=== PATIENT | male | born 1975 | race Asian ===

== ENCOUNTER 2022-08-05 03:07 | Emergency (ER) | payer BC ==
[~2022-08-05] VITALS: Ht 177 cm; Wt 59.1 kg
[2022-08-05 03:14] VITALS: TEMP 97.2
[2022-08-05 03:43] VITALS: BP 132/90; PULSE 53
== END 2022-08-05 03:44 | disposition home or self-care (01) ==
LOC: COL.ER 03:07
DX: S03.03XA Dislocation of jaw, bilateral, initial encounter (principal); X58.XXXA Exposure to other specified factors, initial encounter